=== PATIENT | male | born 1940 | race Caucasian/White ===

== ENCOUNTER 2019-11-30 09:21 | Outpatient (CLI) | payer MEDICARE, SELFPAY ==
--- NOTE | 2019-11-30 09:30 | XRR_ITS ---
PROCEDURE INFORMATION: Exam: XR Abdomen, 1 View Exam date and time: 11/30/2019 9:41 AM Age: 79 years old Clinical indication: Condition or disease; Kidney or ureter condition; Calculus (stone) in ureter; Additional info: Ureteral stone TECHNIQUE: Imaging protocol: XR of the abdomen. Views: Frontal supine view of the abdomen. 1 View. COMPARISON: CT Abdomen/Pel[facility] [id number] 11/19/2019 9:55 AM FINDINGS: Gastrointestinal tract: The bowel gas pattern is nonspecific. Air filled large bowel including distal rectal gas. Organs: Calcifications projecting over the left kidney largest superiorly of approximately 8 mm in the right kidney midpole region of 10 mm. Bones/joints: Unremarkable. Other findings: Calcification adjacent to the L4 vertebral body. Possibly ureteric. XR/XR KUB [id number] IMPRESSION: 1. The bowel gas pattern is nonspecific. Air filled large bowel including distal rectal gas.
== END 2019-11-30 09:22 | disposition home or self-care (01) ==
LOC: RAD 09:26
PROVIDERS: PCP Student in an Organized Health Care Education/Training Program; Visit Provider Nurse Practitioner Family
DX: N20.1 Calculus of ureter (principal); N13.30 Unspecified hydronephrosis
CPT/HCPCS: 74018; 80053; 81001; 87635; 88112

== ENCOUNTER 2019-12-07 13:30 | Day surgery (SDC) | payer MEDICARE, SELFPAY ==
[2019-12-04 13:22] VITALS: BMI 29.9
--- NOTE | 2019-12-04 13:26 | ECG_ITS ---
[facility] Test Date: 2019-12-04 Pat Name: Jaycob Trotter Department: Room: Gender: Male [employer] Clerk: : 1940 Requested By: Sarah Chapa Order Number: [id number] Craig MD: Benoit Dyer M.D. Measurements Intervals [place] Rate: 91 P: 77 VA: 137 QRS: 59 QRSD: 97 T: 48 QT: 347 QTc: 427 Interpretive Statements SINUS RHYTHM NONSPECIFIC T-WAVE ABNORMALITY No previous ECG available for comparison Electronically Signed On 12-04-2019 20:40:30 CDT by Benoit Dyer M.D. [id number]
--- NOTE | 2019-12-04 13:53 | ANES.PREANE2 ---
Pre-Anesthetic Assessment Pre-Anesthetic Assessment: Height/Weight: Height 1.75 m Weight 92.079 kg Preop Diagnosis: Symptomatic right UPJ stone Proposed Procedure: Operation Date: 12/07/19 15:55 Proposed Procedures p Cystoscopy 88898 05329 N20.9 N20.1 R31.0(Not Applicable) - Pola Lane MD s Ureteral Stent Placement(Right) - MD disha Olivares ESWL(Not Applicable) - Pola Lane MD Familial anesthetic complications: None Social: Social History: No alcohol and No tobacco Comment: former smoker - quit 30 years ago Exam: Pre-Anes Outpt Exam: alert, oriented x 3, clear to auscultation bilaterally and regular rate & rhythm Airway: Dentition: Chipped and Other (90% missing) Metabolic: Metabolic: DM Anesthetic Plan: ASA status: 2 Anesthesia: General Risk of > 500 ml blood loss (7ml/kg in children): No PFSH Anesthesia PFSH: Medical History Diabetes mellitus, type II Gross hematuria Primary localized osteoarthritis of knees, bilateral Urolithiasis Surgical History Hx of repair of left rotator cuff Family History Mother , AT AGE 94 Dementia Father , AT AGE 58 Scleroderma Denies family history of Diabetes CAD (coronary artery disease) Clotting disorder Hyperlipidemia Psychiatric illness Chronic kidney disease (CKD) Suicide Anesthesia complication Bleeding disorder Family history of premature coronary artery disease Lung disease Cancer Hypertension Stroke Social History Smoking and tobacco status: never smoked Alcohol intake: never Marital status: Current occupational status: retired History of recent travel: No Data Anesthesia Cardiac Studies: No Data to Display
[2019-12-07] VITALS (7 sets, daily range): BP systolic 126–158; BP diastolic 71–97; PULSE 74–98; RESP 14–20; TEMP 36.1–36.2; O2SAT 93–98
--- NOTE | 2019-12-07 13:17 | XR_ITS ---
WS: [id number] ABDOMEN KUB CLINICAL INFORMATION: Renal/ureteral calculi. COMPARISON: November 30, 2019 FINDINGS: Air distended loops of small and large bowel similar to the prior examination. Moderate spondylitic c hanges lumbar spine worse in the lower lumbar spine. Right renal parenchymal calculus measuring 8 mm in left renal parenchymal calculus measuring 7 mm unchanged. Cholelithiasis. Pelvic phleboliths. XR/XR KUB [id number] Impression: 1. Stable bilateral renal parenchymal calculi described above. 2. Cholelithiasis.
--- NOTE | 2019-12-07 13:40 | ANES.PREANE2 ---
Pre-Anesthetic Assessment Pre-Anesthetic Assessment: Height/Weight: Height 1.75 m Weight 92.079 kg Temp Pulse Resp BP Pulse Ox 96.9 F L 80 18 138/82 95 12/07/19 13:33 12/07/19 13:33 12/07/19 13:33 12/07/19 13:33 12/07/19 13:33 Preop Diagnosis: Symptomatic right UPJ stone Proposed Procedure: Operation Date: 12/07/19 14:40 Proposed Procedures p Cystoscopy 17285 95177 N20.9 N20.1 R31.0(Not Applicable) - MD disha Olivares Ureteral Stent Placement(Right) - Pola Lane MD s ESWL(Not Applicable) - Pola Lane MD Was Beta Blanca taken within 24 hours: N/A Social: Social History: No alcohol and No tobacco Exam: Pre-Anes Outpt Exam: alert, oriented x 3, clear to auscultation bilaterally and regular rate & rhythm Airway: Submandibular: WNL Cervical ROM: WNL MP: 2 History/ROS: No significant complaints Pulmonary: Pulmonary: None reported CV/HEM: CV/HEM: None reported : Comments: Right Ureteral Calculus Hepatic: Hepatic: None reported GI: GI: None reported Metabolic: Metabolic: DM Musc/skel: Musc/skel: None reported Neuropsych: Neuropsych: None reported Anesthetic Plan: ASA status: 3 Anesthesia: General Risk of > 500 ml blood loss (7ml/kg in children): No PFSH Anesthesia PFSH: Medical History Diabetes mellitus, type II Gross hematuria Primary localized osteoarthritis of knees, bilateral Urolithiasis Surgical History Hx of repair of left rotator cuff Family History Mother , AT AGE 94 Dementia Father , AT AGE 58 Scleroderma Denies family history of Diabetes CAD (coronary artery disease) Clotting disorder Hyperlipidemia Psychiatric illness Chronic kidney disease (CKD) Suicide Anesthesia complication Bleeding disorder Family history of premature coronary artery disease Lung disease Cancer Hypertension Stroke Social History Smoking and tobacco status: never smoked Alcohol intake: never Marital status: Current occupational status: retired History of recent travel: No Data Anesthesia Cardiac Studies: No Data to Display
[2019-12-07] MEDS: sodium chloride 0.9% 1,000 ML 30 ML IV (13:49)
--- NOTE | 2019-12-07 13:58 | W.PM.OPSUD ---
Surgery/Procedure H&P Update DATE OF PROCEDURE: December 07, 2019 DATE H&P PERFORMED: 11/30/19 H&P UPDATE INFORMATION: I have reviewed H&P completed within last 30 days, I have examined patient prior to procedure, No changes to prior documentation and H&P is in [facility] on date indicated PREOP DIAGNOSIS: Symptomatic right UPJ stone PLANNED PROCEDURE: Operation Date: 12/07/19 14:40 Proposed Procedures p Cystoscopy [id number] 82106 N20.9 N20.1 R31.0(Not Applicable) - Pola Lane MD s Ureteral Stent Placement(Right) - Pola Lane MD s ESWL(Not Applicable) - Pola Lane MD
[2019-12-07 14:00] LABS: Glucose Point of Care 96 mg/dL (70-110)
--- NOTE | 2019-12-07 14:05 | PM.OP ---
Operative Report Date of procedure: December 07, 2019 Pre-op Diagnosis: Symptomatic right UPJ stone Post-op diagnosis: same Procedure Done: 1. Cystoscopy, right ureteral stent placement (6 Uruguayan by 28 cm double-pigtail without string) 2. Extracorporeal shockwave lithotripsy to right renal pelvic stone Pathology: none sent Surgeon: Pola Lane Metrologist: Lithotripsy Geographic Information Scientist: Nolberto Morrell Anesthesia: General Estimated blood loss: None Urine output: Not measured Complications: None Findings: 1. 6 [place] by 28 cm double-pigtail stent placed without difficulty 2. 2500 shocks administered to the stone with excellent change. Condition: stable Disposition: PACU Brief History: Mr. Trotter is a delightful 79-year-old white male recently diagnosed with a symptomatic obstructing right UPJ stone. Also had another stone but on his left side that was nonobstructing. Reviewed options and elected ESWL with stent placement as initial therapy. Procedure: After routine preoperative evaluation examination and obtaining of informed consent he was taken to the operating suite on 12/07/2019 where general anesthesia was administered without difficulty after appropriate timeout was performed, SCDs confirmed to be functioning, preoperative antibiotics administered, beta-shi protocol confirmed. Prepped and draped in usual sterile fashion in dorsolithotomy position pain careful attention to avoiding pressure points. 21 [place]ruguayan cystoscope with 30 degree lens was introduced into the urethral meatus and advanced into the bladder under videoscopy. Large prostate was noted, moderate trabeculation. No other gross pathology. Flexible tip guidewire was easily advanced up the right ureter into appropriate position and then a 6 [place] by 28 cm double-pigtail stent was advanced over the guidewire through the cystoscope into appropriate position as confirmed via fluoroscopy and cystoscopy. He was then repositioned in supine position pain careful attention to avoiding pressure points and the stone was brought to the focal point utilizing biplanar fluoroscopy with a shock head positioned posteriorly. 2500 shocks were administered in total with excellent change. Initial rate was 70 with later advancement to 90. Initial intensity was 1 with advancement to 4. After approximately 300 shocks a several minute pause was conducted. At the completion of the procedure it appeared that there was a collection of sand and no large stone fragments could be identified. He tolerated the procedure well without complications and was awakened in the operating room and returned to the recovery room in stable condition. PLANS: 1. Discharge from outpatient surgery today. 2. Prescription for hydrocodone sent to local [facility] for filling 3. Follow-up next week with a KUB and likely cystoscopy and stent removal if the stone change is as good as expected.
[2019-12-07] MEDS: levofloxacin-dextrose 5 % 500 MG/100 ML PREMIX 100 MG IV (16:37)
== END 2019-12-07 18:50 | disposition home or self-care (01) ==
LOC: OR 12-08 08:19
PROVIDERS: PCP Student in an Organized Health Care Education/Training Program; Visit Provider Urology
PROC: 0TJB8ZZ Inspection of Bladder, Via Natural or Artificial Opening Endoscopic (ICD-10-PCS; CPT 52000; principal; 2019-12-07 14:40)
PROC: (CPT 50605; 2019-12-07 14:40)
PROC: (CPT 50590; 2019-12-07 14:40)
DX: N20.0 Calculus of kidney (principal); Z87.891 Personal history of nicotine dependence; E11.9 Type 2 diabetes mellitus without complications; M17.0 Bilateral primary osteoarthritis of knee
CPT/HCPCS: 50590; 52332; 12345; 36416; 74018; 82962; 93005; C2625; J1956; J2370; J2405; J2704; J2710; J2765; J3010; J3490; J7030

== ENCOUNTER 2019-12-16 09:07 | Outpatient (CLI) | payer MEDICARE, SELFPAY ==
--- NOTE | 2019-12-16 09:17 | XRR_ITS ---
PROCEDURE INFORMATION: Exam: XR Abdomen, 1 View Exam date and time: 12/16/2019 9:29 AM Age: 79 years old Clinical indication: Condition or disease; Other: Post cysto, eswl, ureteral stent placement; Prior surgery TECHNIQUE: Imaging protocol: XR of the abdomen. Views: Frontal supine view of the abdomen. 1 View. COMPARISON: HI XR KUB [id number] 12/07/2019 1:24 PM FINDINGS: Tubes, catheters and devices: Right double-J catheter with a 5 mm calcification adjacent to the distal most aspect, suspicious for urolithiasis. Gastrointestinal tract: Copious stool in a pattern of constipation. Organs: Bilateral renal calculi, with partial obscuration of the renal fossa by overlying bowel gas and stool. Vasculature: Vascular calcification. Bones/joints: Degenerative change. XR/XR KUB [id number] IMPRESSION: 1. Bilateral renal calculi, with partial obscuration of the renal fossa by overlying bowel gas and stool. 2. Right double-J catheter with a 5 mm calcification adjacent to the distal most aspect, suspicious for urolithiasis.
== END 2019-12-16 09:08 | disposition home or self-care (01) ==
LOC: RAD 09:11
PROVIDERS: PCP Student in an Organized Health Care Education/Training Program; Visit Provider Urology
DX: N20.1 Calculus of ureter (principal); N20.2 Calculus of kidney with calculus of ureter; Z96.0 Presence of urogenital implants
CPT/HCPCS: 74018; 81001; 82365; 88300

== ENCOUNTER 2020-06-15 09:07 | Outpatient (CLI) | payer MEDICARE, SELFPAY ==
--- NOTE | 2020-06-15 09:15 | XR_ITS ---
WS: [id number] KUB, AP view, 06/15/2020 Clinical Data: Z96.0 - Presence of urogenital implants Comparison: KUB, 12/16/2019. Findings: No abnormal intraabdominal masses are seen. There is no dilatated small bowel or evidence of obstruc tion. There are calcifications overlying the left kidney. Fecal material in the colon obscures detail over both kidneys. There is fecal material in the sigmoid colon obscuring pelvic detail. XR/XR KUB [id number] Impression: 1. Probable left renal calcifications. 2. Large amount of fecal material throughout the colon.
== END 2020-06-15 09:08 | disposition home or self-care (01) ==
LOC: RAD 09:12
PROVIDERS: PCP Student in an Organized Health Care Education/Training Program; Visit Provider Urology
DX: Z96.0 Presence of urogenital implants (principal); N20.1 Calculus of ureter
CPT/HCPCS: 74018; 81003

== ENCOUNTER 2021-06-15 09:40 | Outpatient (CLI) | payer MEDICARE, SELFPAY ==
--- NOTE | 2021-06-15 09:45 | XR_ITS ---
WS: [id number] KUB, AP view, 06/15/2021 Clinical Data: Urolithiasis Comparison: KUB, 06/15/2020. Findings: No abnormal intraabdominal masses are seen. There is no dilatated small bowel or evidence of obstruct ion. There are 2 calcifications overlying the left kidney unchanged. The right kidney is obscured by fecal material and bowel gas. Degenerative change and a slight dextroscoliosis of the lumbar spine are not ed XR/XR KUB [id number] Impression: Probable left renal calcifications.
== END 2021-06-15 09:41 | disposition home or self-care (01) ==
PROVIDERS: PCP Student in an Organized Health Care Education/Training Program; Visit Provider Urology
DX: N20.9 Urinary calculus, unspecified (principal)
CPT/HCPCS: 74018; 81003